=== PATIENT | female | born 1965 | race African-American/Black ===

== ENCOUNTER 2023-03-11 17:04 | Emergency (ER) | payer BC ==
[~2023-03-11] VITALS: Ht 175.3 cm; Wt 114.5 kg
[2023-03-11 18:57] VITALS: BP 143/54; PULSE 107; RESP 18; TEMP 99.4; O2SAT 97
== END 2023-03-11 20:14 | disposition left against medical advice (07) ==
LOC: ER 17:04
DX: E78.5 Hyperlipidemia, unspecified (principal); I10 Essential (primary) hypertension; Z53.21 Procedure and treatment not carried out due to patient leaving prior to being seen by health care provider
CPT/HCPCS: 93005